=== PATIENT | female | born 1965 | race Caucasian/White ===

== ENCOUNTER 2016-10-05 20:11 | Emergency (ER) | payer OTHER ==
[~2016-10-05] VITALS: Ht 167.6 cm; Wt 55.0 kg
[~2016-10-05 20:11] MED LIST: DICL50TA3 PO
[2016-10-05 20:19] VITALS: BP 119/57; PULSE 75; RESP 16; TEMP 97.9; O2SAT 99
--- NOTE | 2016-10-05 20:24 | PD ---
HPI Chief Complaint: lightheadedness Time Seen by Provider: 20:15 Travel History International Travel<30 days: No Contact w/Intl Traveler<30days: No History of Present Illness HPI This is a 50-year-old female who has a history of seafood allergy who was eating meat at [employer] restaurant when she started to feel lightheaded, dizzy like she was going to pass out, clammy and sweaty and then started to feel like she had to have diarrhea. Her symptoms have been constant, moderate severity and have improved since EMS arrived. She denies any shortness of breath, itching or chest pain. She says this is happened to her once before years ago in the setting of eating seafood. She also says she feels a little bit nauseous. PFSH Past Medical History Fibromyalgia: Yes Social History Alcohol Use: No Tobacco Use: No Substance Use: No Allergies-Medications (Allergen,Severity, Reaction): Coded Allergies: Shellfish (Verified Allergy, Mild, itching, 10/05/16) Sulfa (Verified Allergy, Mild, gi upset, 10/05/16) Reported Meds & Prescriptions Reported Meds & Active Scripts Active No Active Prescriptions or Reported Medications Review of Systems Except as stated in HPI: all other systems reviewed are Neg Physical Exam Narrative GENERAL:Uncomfortable appearing, tremulous SKIN: Focused skin assessment warm and dry. HEAD: Atraumatic. Normocephalic. EYES: Pupils equal and round. No injection or drainage. ENT: Moist mucous membranes NECK: Trachea midline. CARDIOVASCULAR: Regular rate and rhythm. No murmur appreciated. RESPIRATORY: Clear to auscultation. Breath sounds equal bilaterally. GASTROINTESTINAL: Abdomen soft, non-tender, nondistended. MUSCULOSKELETAL: No obvious deformities. NEUROLOGICAL: Awake and alert. No obvious cranial nerve deficits. Moving all extremities PSYCHIATRIC: Appropriate mood and affect; insight and judgment normal. Data Data Last Documented VS Vital Signs Date Time Temp Pulse Resp B/P Pulse Ox O2 Delivery O2 Flow Rate FiO2 10/05/16 20:19 97.9 75 16 119/57 99 Orders Complete Blood Count With Diff (10/05/16 20:22) Comprehensive Metabolic Panel (10/05/16 20:22) Sodium Chlor 0.9% 1000 Ml Inj (Ns 1000 M (10/05/16 20:30) ^ Insert Iv (10/05/16 20:22) Labs Laboratory Tests Test 10/05/16 20:30 White Blood Count 8.2 TH/MM3 Red Blood Count 4.20 MIL/MM3 Hemoglobin 13.3 GM/DL Hematocrit 37.1 % Mean Corpuscular Volume 88.5 FL Mean Corpuscular Hemoglobin 31.6 PG Mean Corpuscular Hemoglobin 35.7 % Concent Red Cell Distribution Width 12.6 % Platelet Count 185 TH/MM3 Mean Platelet Volume 8.8 FL Neutrophils (%) (Auto) 55.5 % Lymphocytes (%) (Auto) 37.8 % Monocytes (%) (Auto) 5.5 % Eosinophils (%) (Auto) 0.9 % Basophils (%) (Auto) 0.3 % Neutrophils # (Auto) 4.5 TH/MM3 Lymphocytes # (Auto) 3.1 TH/MM3 Monocytes # (Auto) 0.4 TH/MM3 Eosinophils # (Auto) 0.1 TH/MM3 Basophils # (Auto) 0.0 TH/MM3 CBC Comment DIFF FINAL Differential Comment Sodium Level 140 MEQ/L Potassium Level 3.2 MEQ/L Chloride Level 108 MEQ/L Carbon Dioxide Level 23.9 MEQ/L Anion Gap 8 MEQ/L Blood Urea Nitrogen 17 MG/DL Creatinine 0.76 MG/DL Estimat Glomerular Filtration 81 ML/MIN Rate Random Glucose 111 MG/DL Calcium Level 8.2 MG/DL Total Bilirubin 0.5 MG/DL Aspartate Amino Transf 11 U/L (AST/SGOT) Alanine Aminotransferase 17 U/L (ALT/SGPT) Alkaline Phosphatase 44 U/L Total Protein 6.1 GM/DL Albumin 3.7 GM/DL MDM Medical Decision Making Medical Screen Exam Complete: Yes Emergency Medical Condition: Yes Interpretation(s) Afebrile, no tachycardia, normotensive No leukocytosis Hypokalemia Differential Diagnosis Food poisoning, anaphylaxis, allergic reaction Narrative Course This is a 50-year-old female who presents to the emergency department having onset of lightheadedness, dizziness and clamminess immediately after eating. She also had the sensation that she was going to have diarrhea. She is placed on a monitor and an IV was established. Labs are obtained which are reassuring. I suspect the patient has food poisoning. She feels much better after IV hydration. I think she is appropriate for discharge. Diagnosis Primary Impression: Food poisoning Qualified Code: T62.91XA - Food poisoning, accidental or unintentional, initial encounter Patient Instructions: General Instructions Additional Instructions: If you develop severe or worsening abdominal pain, fever>100.4, persistent vomiting or inability to eat or drink return to the emergency department immediately. Follow up with your primary care physician in 1-2 days for a check-up. Med/Other Pt SpecificInfo: No Change to Meds Scripts No Active Prescriptions or Reported Meds Disposition: 01 DISCHARGE HOME Condition: Stable Martha Leal MD Oct 05, 2016 20:24
[2016-10-05] MEDS ORDERED: SODIUM CHLOR 0.9% 1000 ML INJ 1,000 ML IV ONE (20:30)
[2016-10-05 21:01] LABS: AUTOMATED NEUTROPHIL # 4.5 TH/MM3 (1.8-7.7); BASOPHIL % 0.3 % (0.0-2.0); EOSINOPHIL # 0.1 TH/MM3 (0-0.4); EOSINOPHIL % 0.9 % (0.0-4.0); HEMATOCRIT 37.1 % (35.0-46.0); HEMO FLAGS DIFF FINAL; LYMPH % 37.8 % (9.0-44.0); LYMPHOCYTE # 3.1 TH/MM3 (1.0-4.8); MEAN CELL VOLUME 88.5 FL (80.0-100.0); MEAN CORPUSCULAR HEMOGLOBIN 31.6 PG (27.0-34.0); MEAN CORPUSCULAR HGB CONC 35.7 % (32.0-36.0); MONO % 5.5 % (0.0-8.0); NEUT % 55.5 % (16.0-70.0); PLATELET COUNT 185 TH/MM3 (150-450); RED CELL DISTRIBUTION WIDTH 12.6 % (11.6-17.2); WHITE BLOOD COUNT 8.2 TH/MM3 (4.0-11.0)
[2016-10-05 21:22] LABS: ANION GAP 8 MEQ/L (5-15); AST (GOT) 11 U/L (15-37); BICARBONATE 23.9 MEQ/L (21.0-32.0); BLOOD UREA NITROGEN 17 MG/DL (7-18); CHLORIDE 108 MEQ/L (98-107); GLOMERULAR FILTRATION RATE 81 ML/MIN (>89); POTASSIUM 3.2 MEQ/L (3.5-5.1); SODIUM (NA) 140 MEQ/L (136-145)
[2016-10-05 21:26] LABS: ALKALINE PHOSPHATASE 44 U/L (45-117); ALT (GPT) 17 U/L (10-53); TOTAL BILIRUBIN ADULT 0.5 MG/DL (0.2-1.0)
[2016-10-05 22:09] VITALS: BP 111/58
== END 2016-10-05 22:21 | disposition home or self-care (01) ==
LOC: NEPE 20:11
DX: T62.91XA Toxic effect of unspecified noxious substance eaten as food, accidental (unintentional), initial encounter (principal); Z91.013 Allergy to seafood; M79.7 Fibromyalgia
CPT/HCPCS: 80053; 85025; 99284; J7030